=== PATIENT | male | born 1940 | race Asian ===

== ENCOUNTER 2020-03-18 19:39 | Emergency (ER) | payer OTHER ==
[~2020-03-18] VITALS: Ht 160 cm; Wt 63.5 kg
[2020-03-18 19:51] VITALS: Ht 160 cm; Wt 63.5 kg
[2020-03-18 20:40] LABS: BASOPHIL % 0.3 % (0.2-1.5); PLATELET COUNT 176 x10^3mcL (152-348); RED CELL DISTRIBUTION WIDTH 12.8 % (12.1-16.2)
[2020-03-18 20:54] LABS: ALBUMIN 3.4 g/dL (3.4-5.0); ALKALINE PHOSPHATASE 82 U/L (46-116); ALT/SGPT 23 U/L (16-63); AST/SGOT 14 U/L (15-37); BILIRUBIN TOTAL 0.47 mg/dL (0.20-1.00); CALCIUM 9.1 mg/dL (8.5-10.1); CARBON DIOXIDE 27.4 mmol/L (21-32); CHLORIDE SERUM 105 mmol/L (98-107); CREATININE SERUM 1.2 mg/dL (0.7-1.3); GLUCOSE SERUM 162 mg/dL (74-106); SODIUM SERUM 137 mmol/L (136-145); TOTAL PROTEIN, SERUM 6.2 g/dL (6.4-8.2)
[2020-03-18 21:02] LABS: POTASSIUM SERUM 6.3 mmol/L (3.5-5.1)
[2020-03-18 22:31] VITALS: BP 139/94
== END 2020-03-18 22:30 | disposition home or self-care (01) ==
LOC: ED 19:39
PROVIDERS: Student in an Organized Health Care Education/Training Program
DX: S70.12XA Contusion of left thigh, initial encounter (principal); S80.212A Abrasion, left knee, initial encounter; I10 Essential (primary) hypertension; E11.9 Type 2 diabetes mellitus without complications; W10.8XXA Fall (on) (from) other stairs and steps, initial encounter; Y93.89 Activity, other specified; Y92.89 Other specified places as the place of occurrence of the external cause; Y99.8 Other external cause status
CPT/HCPCS: 82962; 90715